=== PATIENT | male | born 1980 | race Caucasian/White ===

== ENCOUNTER 2019-03-17 04:20 | Emergency (ER) | payer BC ==
--- NOTE | 2019-03-17 05:21 | EDM.PDOC ---
ED HPI GENERAL MEDICAL PROBLEM - General Chief Complaint: Laceration Stated Complaint: Head laceration and back pain. Time Seen by Provider: 03/17/19 05:18 Source of Information: Reports: Patient History Limitations: Reports: No Limitations - History of Present Illness INITIAL COMMENTS - FREE TEXT/NARRATIVE: Fall. Hit head. Unknown LOC.MIld laceration to the head - Related Data Allergies Allergy/AdvReac Type Severity Reaction Status Date / Time No Known Allergies Allergy Verified 03/17/19 04:46 Home Meds: Home Meds allopurinoL [Zyloprim] 300 mg PO DAILY 03/17/19 [History] Past Medical History Genitourinary History: Reports: Other (See Below) Other Genitourinary History: Gout, takes medications. Musculoskeletal History: Reports: Other (See Below) Other Musculoskeletal History: Low back injury. Neurological History: Reports: Other (See Below) Other Neuro History: Fell, receiving head laceration. Social & Family History - Alcohol Use Days Per Week of Alcohol Use: 4 Number of Drinks Per Day: 4 Total Drinks Per Week: 16 - Recreational Drug Use Recreational Drug Use: No ED ROS GENERAL - Review of Systems Review Of Systems: Comprehensive ROS is negative, except as noted in HPI. ED EXAM, SKIN/RASH Exam: See Below Exam Limited By: No Limitations General Appearance: Alert, WD/WN, No Apparent Distress Head: Normocephalic, Other (Laceration occipital scalp) Neck: Normal Inspection, Supple. No: Tender Midline Cardiovascular: Normal Peripheral Pulses Back Exam: Paraspinal Tenderness Extremities: Normal Inspection Neurological: Alert, Oriented, CN II-XII Intact Psychiatric: Normal Affect, Normal Mood Location, Skin: Head ED SKIN PROCEDURES - Laceration/Wound Repair Posterior Occipital Head Appearance: Superficial, Linear, Clean Distal NVT: Neuro & Vascular Intact Exploration/Debridement/Repair: In a Bloodless Field Closed with: [place] Lac/Wound length In cm: 4 Drain Placement: No Sterile Dressing Applied: Nurse Tetanus Status Addressed: Yes Complications: No Course - Vital Signs Last Recorded V/S: Last Vital Signs Temp 97.6 F 03/17/19 04:35 Pulse 80 03/17/19 04:35 Resp 18 03/17/19 04:35 BP 109/61 03/17/19 04:35 Pulse Ox 92 L 03/17/19 04:35 - Orders/Labs/Meds Orders: Active Orders 24 hr Category Date Time Status Head wo Cont [CT] Stat Exams 03/17/19 04:46 Taken Lumbar Spine 2 or 3V [CR] Stat Exams 03/17/19 04:47 Taken Departure - Departure Time of Disposition: 05:30 Disposition: Home, Self-Care 01 Condition: Good Clinical Impression: Broken skin, Head injury, Scalp laceration - Discharge Information Instructions: Head Injury, Adult, Acute Back Pain, Adult, Laceration Care, Adult Referrals: Dev Lo MD [Primary Care Provider] - Forms: ED Department Discharge Care Plan Goals: Rest. Ice pack to back as desired. Have alonso removed at your clinic in 5 days. Return to clinic or ER if any signs of worsening head injury or infection of the laceration. Sepsis Event Note - Evaluation Sepsis Screening Result: No Definite Risk - Focused Exam Vital Signs: Vital Signs Temp Pulse Resp BP Pulse Ox 03/17/19 04:35 97.6 F 80 18 109/61 92 L Date Exam was Performed: 03/17/19 Time Exam was Performed: 08:09 - Problem List & Annotations (1) Head injury SNOMED Code(s): 41784599 Code(s): S09.90XA - UNSPECIFIED INJURY OF HEAD, INITIAL ENCOUNTER Status: Acute Current Visit: Yes (2) Scalp laceration SNOMED Code(s): 075473115 Code(s): S01.01XA - LACERATION WITHOUT FOREIGN BODY OF SCALP, INITIAL ENCOUNTER Status: Acute Current Visit: Yes Qualifiers: Encounter type: initial encounter Qualified Code(s): S01.01XA - Laceration without foreign body of scalp, initial encounter - Problem List Review Problem List Initiated/Reviewed/Updated: Yes - My Orders Last 24 Hours: My Active Orders 03/17/19 04:46 Head wo Cont [CT] Stat 03/17/19 04:47 Lumbar Spine 2 or 3V [CR] Stat - Assessment/Plan Last 24 Hours: My Active Orders 03/17/19 04:46 Head wo Cont [CT] Stat 03/17/19 04:47 Lumbar Spine 2 or 3V [CR] Stat Plan: CT head was non acute. DC home .Remove alonso in 5 days
== END 2019-03-17 06:00 | disposition home or self-care (01) ==
LOC: FB.ED 04:20
DX: S01.01XA Laceration without foreign body of scalp, initial encounter (principal); W22.8XXA Striking against or struck by other objects, initial encounter
CPT/HCPCS: 12002; 70450; 72100; 99283-25